=== PATIENT | male | born 1945 | race Caucasian/White ===

== ENCOUNTER → 2019-09-18 | Outpatient (CLI) | payer MEDICARE, BC ==
[2019-09-18 09:25] LABS: EOS # 0.3 (0.04-0.40); EOS % 4.6 % (0.0-4.0); HEMATOCRIT 36.8 % (42.0-52.0); HEMOGLOBIN 10.8 g/dL (13.5-18.0); MEAN CELL VOLUME 93 fl (78-100); MEAN CORPUSCULAR HEMOGLOBIN 27 pg (27-31); MONO # 0.5 (0.20-0.80); NEU # 4.6 (1.40-6.50); PLATELET COUNT 197 K/mm3 (130-400); RED BLOOD COUNT 3.97 M/mm3 (4.20-5.60); RED CELL DISTRIBUTION WIDTH 17.2 % (11.5-14.5); WHITE BLOOD COUNT 6.5 K/mm3 (4.8-10.8)
[2019-09-18 09:28] LABS: MEAN CORPUSCULAR HGB CONC 29 g/dL (33-37)
== END ==
LOC: LAB 09:16
PROVIDERS: Family Medicine
DX: Z86.73 Personal history of transient ischemic attack (TIA), and cerebral infarction without residual deficits (principal)

== ENCOUNTER → 2019-10-10 | Outpatient (CLI) | payer MEDICARE, BC ==
[2019-10-10 12:36] LABS: ALBUMIN 3.5 g/dL (3.4-4.8); POTASSIUM 4.4 mmol/L (3.5-5.1)
[2019-10-10 12:37] LABS: CALCIUM 9.2 mg/dL (8.3-10.5)
[2019-10-10 12:38] LABS: TOTAL PROTEIN 7.1 g/dL (6.2-8.1)
[2019-10-10 12:40] LABS: EOS # 0.2 (0.04-0.40); EOS % 2.8 % (0.0-4.0); HEMATOCRIT 36.8 % (42.0-52.0); HEMOGLOBIN 11.2 g/dL (13.5-18.0); LYMPH# 1.1 (1.50-4.00); MEAN CELL VOLUME 92 fl (78-100); MEAN CORPUSCULAR HEMOGLOBIN 28 pg (27-31); MEAN CORPUSCULAR HGB CONC 30 g/dL (33-37); MONO # 0.8 (0.20-0.80); NEU # 5.9 (1.40-6.50); PLATELET COUNT 178 K/mm3 (130-400); RED BLOOD COUNT 4.02 M/mm3 (4.20-5.60); RED CELL DISTRIBUTION WIDTH 16.2 % (11.5-14.5); TOTAL BILIRUBIN 0.4 mg/dL (0.2-1.2)
== END ==
LOC: LAB 12:16
PROVIDERS: Internal Medicine
DX: C18.9 Malignant neoplasm of colon, unspecified (principal)

== ENCOUNTER → 2019-10-17 | Outpatient (CLI) | payer MEDICARE, BC ==
[2019-10-17 08:52] LABS: EOS # 0.2 (0.04-0.40); EOS % 3.6 % (0.0-4.0); HEMATOCRIT 38.7 % (42.0-52.0); HEMOGLOBIN 11.6 g/dL (13.5-18.0); MEAN CELL VOLUME 92 fl (78-100); MEAN CORPUSCULAR HEMOGLOBIN 28 pg (27-31); MEAN CORPUSCULAR HGB CONC 30 g/dL (33-37); MEAN PLATELET VOLUME 10.1 fl (7.4-10.4); MONO # 0.3 (0.20-0.80); PLATELET COUNT 193 K/mm3 (130-400); RED BLOOD COUNT 4.21 M/mm3 (4.20-5.60); RED CELL DISTRIBUTION WIDTH 15.8 % (11.5-14.5); WHITE BLOOD COUNT 5.6 K/mm3 (4.8-10.8)
[2019-10-17 09:02] LABS: ALBUMIN 3.8 g/dL (3.4-4.8); POTASSIUM 4.4 mmol/L (3.5-5.1)
[2019-10-17 09:03] LABS: CALCIUM 9.8 mg/dL (8.3-10.5)
[2019-10-17 09:06] LABS: TOTAL BILIRUBIN 0.6 mg/dL (0.2-1.2)
== END ==
LOC: LAB 08:44
PROVIDERS: Internal Medicine
DX: C18.0 Malignant neoplasm of cecum (principal)

== ENCOUNTER → 2019-10-24 | Outpatient (CLI) | payer MEDICARE, BC ==
[2019-10-24 10:50] LABS: EOS # 0.2 (0.04-0.40); HEMATOCRIT 33.5 % (42.0-52.0); LYMPH# 0.9 (1.50-4.00); MEAN CELL VOLUME 92 fl (78-100); MEAN CORPUSCULAR HEMOGLOBIN 27 pg (27-31); MEAN CORPUSCULAR HGB CONC 30 g/dL (33-37); MEAN PLATELET VOLUME 9.9 fl (7.4-10.4); MONO # 0.2 (0.20-0.80); NEU # 3.9 (1.40-6.50); PLATELET COUNT 186 K/mm3 (130-400); RED BLOOD COUNT 3.65 M/mm3 (4.20-5.60); WHITE BLOOD COUNT 5.2 K/mm3 (4.8-10.8)
[2019-10-24 10:53] LABS: ALBUMIN 3.4 g/dL (3.4-4.8)
[2019-10-24 10:54] LABS: POTASSIUM 4.4 mmol/L (3.5-5.1)
[2019-10-24 10:55] LABS: CALCIUM 9.1 mg/dL (8.3-10.5)
[2019-10-24 10:56] LABS: TOTAL PROTEIN 7.2 g/dL (6.2-8.1)
[2019-10-24 10:58] LABS: TOTAL BILIRUBIN 0.4 mg/dL (0.2-1.2)
== END ==
LOC: LAB 10:20
PROVIDERS: Family Medicine
DX: C18.9 Malignant neoplasm of colon, unspecified (principal); N18.3 Chronic kidney disease, stage 3 (moderate); D63.1 Anemia in chronic kidney disease

== ENCOUNTER → 2019-11-13 | Outpatient (CLI) | payer MEDICARE, BC ==
[2019-11-13 12:49] LABS: EOS # 0.3 (0.04-0.40); HEMATOCRIT 29.6 % (42.0-52.0); MEAN CELL VOLUME 96 fl (78-100); MEAN CORPUSCULAR HEMOGLOBIN 29 pg (27-31); MEAN CORPUSCULAR HGB CONC 30 g/dL (33-37); MEAN PLATELET VOLUME 9.4 fl (7.4-10.4); MONO # 0.5 (0.20-0.80); NEU # 3.5 (1.40-6.50); PLATELET COUNT 182 K/mm3 (130-400); RED CELL DISTRIBUTION WIDTH 18.7 % (11.5-14.5); WHITE BLOOD COUNT 5.3 K/mm3 (4.8-10.8)
[2019-11-13 13:23] LABS: ALBUMIN 3.3 g/dL (3.4-4.8); POTASSIUM 4.6 mmol/L (3.5-5.1)
[2019-11-13 13:55] LABS: CALCIUM 8.7 mg/dL (8.3-10.5); TOTAL BILIRUBIN 0.5 mg/dL (0.2-1.2); TOTAL PROTEIN 6.7 g/dL (6.2-8.1)
== END ==
LOC: LAB 12:36
PROVIDERS: Internal Medicine
DX: C18.9 Malignant neoplasm of colon, unspecified (principal)

== ENCOUNTER → 2020-01-09 | Outpatient (CLI) | payer MEDICARE, BC | LOC: RAD 08:16 | PROVIDERS: Internal Medicine | DX: C18.0 Malignant neoplasm of cecum (principal); I51.7 Cardiomegaly; K80.20 Calculus of gallbladder without cholecystitis without obstruction; N21.0 Calculus in bladder; Z90.49 Acquired absence of other specified parts of digestive tract; Z93.2 Ileostomy status; N28.82 Megaloureter | CPT/HCPCS: Q9967 ==

== ENCOUNTER 2020-10-17 14:00 | Emergency (ER) | payer MEDICARE, BC ==
[2020-10-17] MEDS ORDERED: TRAMADOL 50 MG TAB PO (14:20)
[2020-10-17] MEDS ORDERED: ANTACID ULTRA PO (14:20)
[2020-10-17] MEDS ORDERED: ONDANSETRON ODT8 MG PO (14:20)
[2020-10-17] MEDS ORDERED: GOOD NEIGHBOR200 M1 PO (14:21)
[2020-10-17 14:29] LABS: BASO # 0.01 (0.02-0.10); EOS # 0.01 (0.04-0.40); EOS % 0.1 % (0.0-4.0); HEMATOCRIT 33.9 % (42.0-52.0); HEMOGLOBIN 11.1 g/dL (13.5-18.0); MEAN CELL VOLUME 90 fl (78-100); MEAN CORPUSCULAR HEMOGLOBIN 30 pg (27-31); MEAN CORPUSCULAR HGB CONC 33 g/dL (33-37); MEAN PLATELET VOLUME 12.3 fl (7.4-10.4); MONO # 1.17 (0.20-0.80); NEU # 8.81 (1.40-6.50); PLATELET COUNT 239 K/mm3 (130-400); RED BLOOD COUNT 3.76 M/mm3 (4.20-5.60); RED CELL DISTRIBUTION WIDTH 14.3 % (11.5-14.5); WHITE BLOOD COUNT 11.2 K/mm3 (4.8-10.8)
[2020-10-17 15:10] LABS: ALBUMIN 3.1 g/dL (3.4-4.8)
[2020-10-17 15:11] LABS: SODIUM 122 mmol/L (136-145)
[2020-10-17 15:12] LABS: CALCIUM 9.2 mg/dL (8.3-10.5)
[2020-10-17 15:13] LABS: GLUCOSE 127 mg/dL (75-110); TOTAL PROTEIN 7.2 g/dL (6.2-8.1)
[2020-10-17 15:15] LABS: TOTAL BILIRUBIN 0.5 mg/dL (0.2-1.2)
[2020-10-17 15:18] LABS: AST-SGOT 11 U/L (5-34)
[2020-10-17 15:19] LABS: ALT/SGPT 13 U/L (0-55); PARTIAL THROMBOPLASTIN TIME 29.1 SECONDS (21.0-32.0); PROTHROMBIN TIME 11.8 SECONDS (9.0-12.0)
[2020-10-17 15:21] LABS: CARBON DIOXIDE 9 mmol/L (23-31); POTASSIUM 7.2 mmol/L (3.5-5.1)
[2020-10-17 15:25] LABS: TROPONIN-I 0.15 ng/mL (<0.030)
[2020-10-17 15:50] LABS: D-DIMER 4.92 mg/L FEU (0.15-0.50)
[2020-10-17 17:55] VITALS: BP 101/69
== END 2020-10-17 17:50 ==
LOC: ED 14:00
PROVIDERS: Nurse Practitioner Family
DX: E87.5 Hyperkalemia (principal); I48.91 Unspecified atrial fibrillation; I21.4 Non-ST elevation (NSTEMI) myocardial infarction; N17.9 Acute kidney failure, unspecified; C18.9 Malignant neoplasm of colon, unspecified; I25.10 Atherosclerotic heart disease of native coronary artery without angina pectoris; E11.22 Type 2 diabetes mellitus with diabetic chronic kidney disease; N18.9 Chronic kidney disease, unspecified; I13.0 Hypertensive heart and chronic kidney disease with heart failure and stage 1 through stage 4 chronic kidney disease, or unspecified chronic kidney disease; I50.9 Heart failure, unspecified; I47.2 Ventricular tachycardia; Z86.73 Personal history of transient ischemic attack (TIA), and cerebral infarction without residual deficits
CPT/HCPCS: J1885; J2270; J7030